=== PATIENT | female | born 1945 | race Caucasian/White ===

== ENCOUNTER → 2023-12-22 13:47 | Outpatient (REF) | payer MEDICARE, SELFPAY | LOC: RADI 13:47 | PROVIDERS: ATTENDING PHYSICIAN Internal Medicine | DX: E04.1 Nontoxic single thyroid nodule (principal) | CPT/HCPCS: 88173; 10005 ==

== ENCOUNTER 2024-01-25 19:58 | Inpatient (IN) | payer MEDICARE, OTHER, SELFPAY ==
[2024-01-25 17:29] VITALS: BP 190/105
[2024-01-25 18:14] VITALS: BMI 26.5
[2024-01-25 18:21] LABS: % Basophils 0.6 % (0-2); % Eosinophils 2.7 % (0-6); % Immature Granulocytes 0.4 % (0-0.5); % Lymphocytes 23.8 % (20.5-51.1); % Monocytes 6.3 % (1.7-9.3); % Neutrophils 66.2 % (42.2-75.2); Absolute Eosinophils 0.1 10^3/uL (0-0.7); Absolute Lymphocytes 1.3 10^3/uL (1.2-3.4); Absolute Monocytes 0.3 10^3/uL (0.1-0.6); Absolute Neutrophils 3.5 10^3/uL (1.4-6.5); Hematocrit 37.3 % (37.0-47.0); Hemoglobin 13.2 g/dL (12.0-16.0); Mean Corp Hgb Conc. 35.4 g/dL (33.0-37.0); Mean Corpuscular Hgb 28.3 pg (27.0-31.0); Mean Corpuscular Volume 79.9 fL (81.0-99.0); Mean Platelet Volume 9.6 fL (7.4-10.4); Nucleated Red Blood Cells % 0 %; Platelet Count 193 10^3/uL (130-400); Red Blood Cell Count 4.67 10^6/uL (4.20-5.40); Red Cell Dist. Width 14.7 % (11.5-14.5); White Blood Cell Count 5.3 10^3/uL (4.8-10.8)
--- NOTE | 2024-01-25 18:27 | EDRN ---
Nathan MARCOS currently at the pts bedside speaking with the pt
[2024-01-25 18:30] LABS: INR 0.99; PT 12.9 Sec (11.4-14.6)
[2024-01-25 18:31] LABS: APTT 28.3 Sec (23.4-35.0)
[2024-01-25 18:33] LABS: ALT (SGPT) 33 U/L (0-35); AST (SGOT) 36 U/L (14-36); Albumin 4.4 g/dl (3.5-5.0); Alkaline Phosphatase 80 U/L (38-126); Blood Urea Nitrogen 18 mg/dl (7-17); Carbon Dioxide 23 mmol/L (22-30); Chloride 107 mmol/L (98-107); Estimated Creatinine Clearance 51 ml/min; Glucose 89 mg/dl (70-99); Potassium 3.5 mmol/L (3.5-5.1); Sodium 139 mmol/L (135-145); Total Bilirubin 0.6 mg/dl (0.2-1.3); Total Protein 7.1 g/dl (6.3-8.2); eGFR > 60.00
[2024-01-25 18:44] LABS: Erythrocyte Sed Rate 23 mm/hour (0-20)
--- NOTE | 2024-01-25 18:44 | ED.GENMED ---
History of Present Illness
General
Chief Complaint: Eye Problems
Source: patient and records
Time Seen by Provider: 01/25/24 18:11
Travel History
Have you had any contact with someone who has COVID-19?: No
Do you have any symptoms of coronavirus? Fever > 100 degrees, chills, cough, shortness of breath, sore throat, loss of taste or smell, muscle aches, or headache?: No
History of Present Illness
History of Present Illness:
78-year-old female with past medical history of hypertension, hyperlipidemia, multiple GI complications, previous breast cancer presenting to the emergency department from her ophthalmology office with concern for central retinal artery occlusion.
Patient states that she awoke Wednesday morning describing a 'black like goo substance' over the central portion of her vision and she has not had return of her vision since then. She states that the vision has not gotten any worse however. She
does note that she has had almost daily headaches since December 22 for which she was taking Excedrin for but states due to her stomach issues this was causing her stomach to get upset so she stopped taking it. Patient states that the headaches would
be often times diffuse but would intermittently be isolated to different areas of her head but never seem to be the same. She denies any fevers or infectious symptoms, neck pain or stiffness, focal weakness or numbness, ocular pain, traumatic
injuries or any other concerns presently.
Past History
Past History
ED Past Medical History: Cancer, GERD, HTN and Hypercholesterolemia
ED Past Surgical History: Gynecological, Orthopedic, Tonsilectomy and Other
Social History
Tobacco: Former smoker
Alcohol: Occasional
Drug: None
Personal:
Living: with family
Employment: Retired
Family History
Family History: Other
Review of Systems
Review of Systems
All Other Systems: ROS reviewed and negative except as documented in HPI and ROS
Phy Exam
Physical Exam
Physical Exam:
GENERAL: Alert , in no apparent distress
Head: Normocephalic atraumatic, No tenderness over the temporal artery bilateral
EYE: pupils equal and reactive, 4 mm bilateral, EOMI, gross vision is intact to the left eye but patient is unable to visualize any of my fingers when placed directly in front of her eye. Peripheral vision seems and.
NECK: Supple
ENT: o/p clr, mmm.
CARDIAC: Regular rate and rhythm .
LUNGS: Clear breath sounds bilaterally, no acute respiratory distress, no wheezes/rales/rhonchi
ABDOMEN: Soft, without focal tenderness, no r/g, no cvat
NEUROLOGICAL: Alert and oriented, no focal neuro deficits
SKIN: Warm and dry, skin intact.
MUSCULOSKELETAL: well perfused.
PSYCH: Normal and appropriate interaction.
Scores
Heart Failure Risk
Heart Failure Risk Score: Not Applicable
Heart Score for Chest Pain Patients
STEMI patient?: Not applicable
Withdrawal Assessment of Alcohol
Withdrawal Assessment Completed?: Not applicable
Course
Orders/Labs/Results
Orders:
Orders
01/25/24 18:05
CT Head W/o Iv Contrast Urgent
Comment:
Reason For Exam: visual changes
01/25/24 18:10
C-Reactive Protein Urgent
Comment: ADD ON
Complete Blood Count/With Diff Urgent
Comprehensive Metabolic Panel Urgent
Erythrocyte Sed Rate Urgent
Comment: ADD ON
PT/INR [Prothrombin Time] Urgent
PTT Urgent
TSH Reflex To Free T4 Urgent
01/25/24 18:31
Add On- LAB Urgent
Tests Added?: ESR, CRP
01/25/24 18:33
EKG [Electrocardiogram (*1)] Urgent
Reason for Study: Vertigo / Dizzy
EKG- Treatment ONCE
01/25/24 19:13
Aspirin 325 mg PO NOW STA
Clopidogrel Bisulfate [Plavix] 300 mg PO NOW STA
01/25/24 19:41
Admit/Transfer Patient As Directed
Co-Sign Provider:
Level of Care: Inpatient admission
Assign to:: Telemetry
Physician / Group: Paris Junior
Diagnosis: retinal artery occlusion
Reason for Telemetry: CVA/TIA
Date to Stop Telemetry: 01/28/24
Time to Stop Telemetry: 11:00
Reason for Hospitalization: retinal artery occlusion; stroke
Expected length of stay greater than two midnights?: Yes
ELOS- Estimated Length of Stay in days: 2
I certify the patient meets the requirements for IP care: Yes
01/25/24 19:44
Code Status As Directed
Resuscitation Status: Do not resuscitate
Reached after discussion with pt or family/Healthcare POA: Yes
01/25/24 19:45
DNR Bracelet Application ONCE
01/25/24 20:44
Acetaminophen [Tylenol/Feverall] 650 mg RECTAL Q4HPRN PRN
Acetaminophen [Tylenol] 650 mg PO Q4HPRN PRN
01/25/24 20:44
Echo 2D MMode Color/Doppler Routine
Reason for Study: stroke/TIA
Case Management Consult ONCE
Case Management Consult: Discharge Planning
Comment: stroke/tia
DIETARY CONSULT Routine
Reason for Consult: stroke/TIA
NEUROLOGY CONSULT Routine
Consulting Provider: Angelita Sofia
Was physician already notified: Yes
Technical Architect Urgent
MA [place] Routine
Comment:
Reason For Exam: stroke/TIA
Recent pill cam endoscopy?: No
MA Neck With Contrast Routine
Comment:
Reason For Exam: stroke/TIA
Recent pill cam endoscopy?: No
MR Brain Without Contrast Routine
Comment:
Reason For Exam: stroke/TIA
Recent pill cam endoscopy?: No
Activity As Directed
Activity Level: As Tolerated
NIH Stroke Scale As Directed
Directions: Per protocol
Comment: every shift and with any change in condition or mental status
Neurological Checks As Directed
Frequency: q4h
Additional Instructions:: q4h x 24h upon admission to the floor, then qshift & with any change in condition
and mental status
Patient Education As Directed
Type: Stroke education packet
Comment: provide to patient and family
Pneumatic Compression Sleeves As Directed
Type: Knee high
Swallow Screening CVA/TIA ONLY As Directed
Comment: NPO until swallowing screening completed
If patient FAILS swallow screening:: NPO, Speech Therapy consult, Aspiration Precautions
If patient PASSES swallow screening, diet:: Cholesterol Lowering
Above diet order entered?: Yes- passed screening
Vital Signs As Directed
Frequency: Per unit guidelines
Ot Eval And Treat Routine
Pt Eval And Treat Routine
Activity Level: As Tolerated
Speech Therapy Eval & Treat Routine
DX Deep Vein Thrombosis Video Routine
01/25/24 22:00
Famotidine [Pepcid] 20 mg PO HS
Pantoprazole [Protonix] 40 mg PO HS
01/26/24 06:00
Basic Metabolic Panel IN AM
Cardiovascular Evaluation IN AM
Complete Blood Count/No Diff IN AM
Glycohemoglobin (HgbA1c) IN AM
Linaclotide [Linzess] 290 mcg PO DAILY @ 0600
01/26/24 08:00
Aspirin Chewable [Low Strength Aspirin] 81 mg PO DAILY
Bisacodyl [Dulcolax] 5 mg PO DAILY
Clopidogrel Bisulfate [Plavix] 75 mg PO DAILY
Duloxetine Delayed Release [Cymbalta Delayed Release] 20 mg PO DAILY
Sennosides [Senokot] 147.92 mg PO DAILY
01/26/24 12:00
Atorvastatin [Lipitor] 80 mg PO NOON
Ferrous Sulfate [Feosol] 325 mg PO NOON
Lisinopril [Zestril] 10 mg PO NOON
01/28/24 11:00
DC Protocol for Telemetry ONCE
Abnormal Lab Results
01/25/24
18:10
MCV 79.9 L fL
(81.0-99.0)
RDW 14.7 H %
(11.5-14.5)
ESR 23 H mm/hour
(0-20)
BUN 18 H mg/dl
(7-17)
01/25/24 18:10
01/25/24 18:10
Vital Signs
Initial and Last Documented VS:
Initial Vital Signs
Temp Pulse Resp BP Pulse Ox
98.5 F 85 18 190/105 98
01/25/24 17:29 01/25/24 17:29 01/25/24 17:29 01/25/24 17:29 01/25/24 17:29
Last Documented Vital Signs
Temp Pulse Resp BP Pulse Ox
97.1 F 78 18 152/98 99
01/25/24 18:52 01/25/24 20:00 01/25/24 20:00 01/25/24 20:00 01/25/24 20:00
MDM/Problems Addressed
Differential Diagnosis Includes:
Central retinal artery occlusion, giant cell arteritis, less concern for glaucoma given lack of pain associated with the visual disturbance 78-year-old female presenting emergency department for evaluation of right-sided ocular visual disturbance
since Wednesday. Evaluated by ophthalmology today read concern for central retinal artery occlusion and sent patient to the ER for further evaluation. Triage team initiated labs and CT of the head. Patient was noted to be fairly hypertensive on
arrival and we will trend this. Will consult with neurology. Anticipate admission
Chronic conditions affecting care: HTN
Acute Exacerbation and/or Progression of Chronic Illness: HTN
*Radiology
Radiology exam reviewed: radiology read reviewed
*Pulse Oximetry
Patient hypoxic: no
*EKG
Interpreted by ED Provider?: Yes
Comparison EKG: changes noted
Heart Rate: 73
Rate: normal
Rhythm: sinus arrhythmia
QRS Pattern: other (bifasicular block)
*Critical Care Note
Total Time (30-74mins, 75-104mins- exclusive of procedures): Not Applicable
Data Reviewed
Review of Other/Old Records Reveals: Records
Patient Management
Discussion with other providers: Hospitalist and Cashier Office
Escalation/DeEscalation of care consider admission/obs:
6:40 PM: Case discussed with neurology who would like patient to be admitted for further inpatient workup. Hospitalist team was notified and accepts for continued evaluation and treatment. Will treat with loading dose of aspirin and Plavix.
ED Attending Note
-
Portions of this chart may have been created with voice recognition software.� Occasional wrong word or��sound alike� substitutions may have occurred due to the inherent limitations of voice recognition software.
Discharge Plan
Departure
Patient Disposition: Admit
Date of Disposition: 01/25/24
Time of Disposition: 19:11
Presentation/result/management discussed w/ accepting MD/DO: Hospitalist
Discharge Problem:
Central retinal artery occlusion of right eye
Interventions
Interventions:
*Risk Screen - Suicide Last Done: 01/25/24 17:29
*General Assessment Last Done: 01/25/24 17:29
*Neglect/Abuse Screening Last Done: 01/25/24 17:29
ED- Fall Risk Assessment Last Done: 01/25/24 19:02
*ED COVID-19 Vaccine History Last Done: 01/25/24 18:14
*Nursing Disposition Last Done: 01/25/24 20:36
Discharge Date and Time
Discharge Date/Time: 01/25/24 20:37
[2024-01-25 18:48] LABS: C-Reactive Protein < 5.00 mg/L (0.0-10.00)
[2024-01-25 18:52] VITALS: BP 150/109
--- NOTE | 2024-01-25 18:53 | EDRN ---
the pts blood pressure is elevated, this RN notified Nathan MARCOS
--- NOTE | 2024-01-25 18:56 | EDRN ---
Nathan MARCOS currently at the pts bedside speaking with the pt about admission
[2024-01-25 19:03] LABS: TSH Reflex To Free T4 1.85 uIU/ml (0.47-4.68)
--- NOTE | 2024-01-25 19:11 | HPS.HSE ---
Family Physician
-
Family Physician: Kalen Rico Jr.
Chief Complaint
-
change in vision
History of Present Illness
Ms. Sue Rodriguez is a 78 yo woman with hx HTN, HLD, Tidwell's esophagus,chronic constipation sent to ER from ophthalmology office with loss of central vision and further work-up of suspected central retinal artery occlusion.
Patient has history of cataracts. She woke up Wednesday morning with painless loss of central vision of right eye. She describes it like black fog and can see around it. She figured it was her cataract and she was due for surgery. She had a
scheduled appointment with Dr. Rachel today who after work-up sent her to ER given concern Central retinal artery occlusion.
Patient states that she has had daily headaches over past month that have not been relieved with tylenol as her usual headaches are. Currently headache free. No fevers. No scalp tenderness. Her PCP thought it was sinus WOLFF but it didn't improve
with antibiotics.
No fevers/chills. No chest pain. She states she gets palpitations at night when plays games on her phone. + intermittent nausea, no vomiting. + LE edema on and off. No rash.
Medical History
Past Medical History
Past Medical History: Reports Other (HTN, HLD, Tidwell's esophagus)
Past Surgical History: Reports Gynocological, Orthopedic and Tonsilectomy
Social History
Tobacco: Former Smoker
Alcohol: Occasional
Family History
Family History: Not pertinent
Allergies / Home Medications
Allergies reflects when Allergies were last updated in [facility].
Home Medications with original date entered in [facility]
Allergy/Medication List:
Allergies
Allergy/AdvReac Type Severity Reaction Status Date / Time
Sulfa (Sulfonamide Allergy numbiness Verified 03/19/22 16:05
Antibiotics) in face
tetracycline [Tetracycline] Allergy face Verified 03/19/22 16:05
became numb
tetracycline HCl Allergy face Verified 03/19/22 16:05
[From Sumycin] became numb
Home Medications
hydrochlorothiazide 12.5 mg tablet 12.5 mg PO WEEKLY PRN Fluid retention/Swelling 08/02/20
linaclotide 290 mcg capsule (Linzess) 290 mcg PO DAILY 08/02/20
omeprazole magnesium 20 mg tablet,delayed release (Prilosec OTC) 40 mg PO HS Gastrointestinal issue 08/02/20
cholecalciferol (vitamin D3) 50 mcg (2,000 unit) tablet 2,000 unit PO NOON 10/09/20
famotidine 20 mg tablet 20 mg PO HS 10/09/20
ferrous sulfate 325 mg (65 mg iron) tablet (FeroSul) 325 mg PO NOON 10/09/20
sennosides 8.6 mg tablet (Senokot) 17.2 tab PO DAILY 10/09/20
Lactobacillus no.46-B. animalis-inulin 10 billion cell-100 mg capsule (Probiotic-10 (with inulin)) 1 cap PO BID@0800,1200 01/25/24
[facility] Laxative 1.5 tab PO BID@1200,1700 01/25/24
aloe vera 25 mg capsule 125 mg PO HS 01/25/24
atorvastatin 80 mg tablet 80 mg PO NOON 01/25/24
bisacodyl 5 mg tablet 5 mg PO DAILY 01/25/24
cyanocobalamin (vitamin B-12) 500 mcg tablet (Vitamin B-12) 500 mcg PO NOON 01/25/24
duloxetine 20 mg capsule,delayed release 20 mg PO DAILY 01/25/24
lisinopril 10 mg tablet 10 mg PO NOON 01/25/24
fpuqolsknjtx-gzbzkaoo-pmofuk tablet 1 tab PO Q48H 01/25/24
Review of Systems
-
History Source: Patient
A 12 point ROS was completed and negative except as noted: Yes
Physical Exam
Vital Signs
Vital Signs
Temp Pulse Resp BP Pulse Ox
97.1 F 80 16 150/109 96
01/25/24 18:52 01/25/24 18:52 01/25/24 18:52 01/25/24 18:52 01/25/24 18:52
Physical Exam
General: No Apparent Distress and Conversant
HEENT: Other (loss of central vision right eye)
Respiratory: Clear; No Wheezes
Cardiac: S1/S2 and Regular Rhythm
GI: Soft and Non Tender
Musculoskeletal: No Edema
Skin: Warm and Dry; No Rash
Neuro: AO x 3 and Other (no facial asymmetry, tongue protrusion mid-line, shoulder shrug WNL, normal speech, no pronator drift, 5/5 stregth upper and lower extremities, sensation grossly intact)
Psych: Calm
Laboratory Results
-
01/25/24 18:10
01/25/24 18:10
Laboratory Results
PT 12.9 Sec (11.4-14.6) 01/25/24 18:10
INR 0.99 01/25/24 18:10
APTT 28.3 Sec (23.4-35.0) 01/25/24 18:10
Total Bilirubin 0.6 mg/dl (0.2-1.3) 01/25/24 18:10
AST 36 U/L (14-36) 01/25/24 18:10
ALT 33 U/L (0-35) 01/25/24 18:10
Alkaline Phosphatase 80 U/L (38-126) 01/25/24 18:10
Data Reviewed
-
Diagnostic Radiology: Report Reviewed by me
Lab Data: Labs Reviewed by me
Impression/Plan
-
Ms. Sue Rodriguez is a 78 yo woman with hx HTN, HLD, Tidwell's esophagus sent to ER from ophthalmology office with loss of central vision and further work-up of suspected central retinal artery occlusion.
Triage VS: T 98.5, P 85, RR 18, BP 190/105, SpO2 98%
LABS: WBC 5.3, Hg 13.2, PLT 193, Na 139, K+ 3.5, Cr 0.8, Glucose 89, liver enzymes WNL, ESR 23, CRP < 5, TSH 1.[address]
IMPRESSION:
No acute intracranial abnormality noted.
MAR: asa/plavix
CENTRAL VISION LOSS
-concern for central retinal artery occlusion
-s/p full dose aspirin and plavix in ER
-admit to telemetry
-MRI/MRA tomorrow AM
-TTE
-formal neuro consult tomorrow
-neuro checks
-F/U lipid panel and A1c
-continue asa/plavix
-continue CHIEF SCIENCE OFFICER atorvastatin (took noon dose today)
-PT/OT/ST
HTN
-continue CHIEF SCIENCE OFFICER lisinopril
Tidwell's esophagus
-continue CHIEF SCIENCE OFFICER pepcid, prilosec (consider increasing to BID while on asa/plavix)
Chronic constipation
-CHIEF SCIENCE OFFICER Linzess, senna, and bisacodyl
DVT PPx SCD
DNR - patient wearing DNR bracelet of her own on admission; rediscussed on admit
[2024-01-25] MEDS: ASPIRIN 325 MG PO (19:20)
[2024-01-25] MEDS: PLAVIX 300 MG PO (19:20)
[2024-01-25 20:00] VITALS: BP 152/98
[2024-01-25 21:10] VITALS: BP 211/115
[2024-01-25 22:02] VITALS: BP 200/100
[2024-01-25] MEDS: PEPCID 20 MG PO (22:48)
[2024-01-25] MEDS: PROTONIX 40 MG PO (22:48)
[2024-01-25] MEDS: CATAPRES 0.100000000000000006 MG PO (22:49)
[2024-01-25 23:20] VITALS: BP 157/90
[2024-01-26] VITALS (7 sets, daily range): BP systolic 150–187; BP diastolic 66–88; PULSE 71; O2SAT 98
[2024-01-26] MEDS: TYLENOL 650 MG PO (05:45)
--- NOTE | 2024-01-26 05:51 | PTCARENOTE ---
Patient received from Ed via wheelchair and was assisted to bed by staff. She transferred using SPC. She was oriented to room and surroundings. Tele SA with PVC and BBC. Lungs CTA. Voiding in bathroom. NIH 1. She continues with central vision
loss in right eye but able to see peripherally. BP elevated 200/100. Catapres a ordered with repeat BP 157/90 HR 60's.
[2024-01-26 06:32] LABS: Hematocrit 32.7 % (37.0-47.0); Hemoglobin 11.6 g/dL (12.0-16.0); Mean Corp Hgb Conc. 35.5 g/dL (33.0-37.0); Mean Corpuscular Hgb 28.5 pg (27.0-31.0); Mean Corpuscular Volume 80.3 fL (81.0-99.0); Platelet Count 171 10^3/uL (130-400); Red Blood Cell Count 4.07 10^6/uL (4.20-5.40); Red Cell Dist. Width 14.6 % (11.5-14.5); White Blood Cell Count 4.2 10^3/uL (4.8-10.8)
[2024-01-26 06:53] LABS: Blood Urea Nitrogen 17 mg/dl (7-17); Calcium 9.3 mg/dl (8.4-10.2); Carbon Dioxide 26 mmol/L (22-30); Chloride 108 mmol/L (98-107); Estimated Creatinine Clearance 51 ml/min; Glucose 95 mg/dl (70-99); HDL Cholesterol 48 mg/dl; LDL Cholesterol, Calculated 107 mg/dl; Potassium 3.7 mmol/L (3.5-5.1); Sodium 139 mmol/L (135-145); Total Cholesterol 194 mg/dl (50-199); Triglyceride 195 mg/dl (10-149); Very Low Density Lipoprotein 39 mg/dl (0-30); eGFR > 60.00
--- NOTE | 2024-01-26 08:45 | CON.NEURO4 ---
Addendum entered and electronically signed by Marco Jose MD 01/26/24 11:10:
Studies reviewed.
I have personally examined the patient. I reviewed and agree with the ENVIRONMENTAL SERVICES TECH's Note.
My addenda:
Awake, alert, interactive. No acute distress.
Speech intact.
Follows 2-step requests w/o difficulty. No tremor.
Extra-ocular movements grossly intact.
Facial movements full and symmetric. Hearing intact to normal conversational volume.
Normal UE movements bilaterally.
Neck: full ROM.
Chest: no dyspnea
Heart: no JVD
Ext: (-) Clubbing, (-) Cyanosis, (-) Edema
IMPRESSIONS/RECOMMENDATIONS:
Abrupt onset of lost vision in the right eye
Differential diagnosis includes central retinal artery occlusion, migraine with aura (less likely due to the lack of variability in symptoms
Continued dual antiplatelet therapy with combined aspirin 81 mg and clopidogrel 75 mg, discontinuing clopidogrel after 21 days
goal of normotension as the patient symptomatology has been greater than 24 hours
Continue atorvastatin 80 mg daily, add Ezetimibe 10 mg daily due to elevated LDL
Check MRI of brain
Continue B12 replacement
Continue iron replacement
Provide prochlorperazine for headache control until normotension is achieved
Check MRA head and neck
There is no evidence at this time of temporal arteritis and therefore no indication at this time for the use of steroids
D/W patient
All questions answered.
Will continue to follow patient.
Original Note:
Documented by User: Jenna Chang NP 01/26/24 10:53
Consultation - Neurology 4
-
CONSULTING PHYSICIAN: Marco Jose MD
REFERRING PHYSICIAN: Hospitalists/Dr. Junior
DICTATED BY: KEHINDE Sebastian
DATE/TIME OF REQUEST: 01/25/24
DATE/TIME OF CONSULTATION: 01/26/24
Reason for Consultation: Right eye central retinal artery occlusion
History of Present Illness:
This is a 78-year-old female who has presented to the hospital on 01/25/24 with report of right eye vision loss. Patient reports having bilateral cataracts, severe in her right eye. Five days ago on 01/21/24 she went to bed at 2200 in her usual
state. She woke up several times throughout the night to use the bathroom and didn't notice any vision changes. When she woke up Wednesday morning (01/22/24), she reports that her right eye central vision had 'black goo' in it. This has been constant
since it started. She also notes occasionally seeing something similar to a moving shadow in her right eye lateral peripheral vision. She thought this was just a progression of her cataract. She went to see ophthalmology Dr. Yi on Wednesday
01/24/24, who told her he thought she had an eye stroke and referred her to the ER. CT head was obtained on arrival in the ER and was negative for any acute abnormalities. Her blood pressure has been elevated since arrival up to 211/115. She was not
a candidate for IAT/TNK due to being outside of the time window. She was loaded with DAPT in the ER. She denies any dizziness, speech/swallow difficulty, numbness, weakness, nausea, chest pain, palpitations, and shortness of breath.
Patient endorses a chronic daily headache associated with occasional photo/phonophobia since 12/23/23. On 12/22/23 she had a thyroid biopsy, and she attributed her new headache to a sinus infection. She was treated with PO Ceftin x10 days with no
improvement of her symptoms. Her blood pressure at that office visit was 166/78. Her headache did not resolve, and she was ordered a prednisone burst, but she never took this. Her headache is across her forehead and radiates across the top of her
head to her posterior head. It is typically worse in the morning. For 2-3 hours every morning it is a 9/10. Following that it becomes intermittent throughout the day and is more of a 4-6/10. Currently, it is a 6/10. She was taking Excedrin migraine
but started having GI upset, so she switched to taking Tylenol PRN. She reports having migraines for a short period after she quit smoking 29 years ago. She also notes that since 12/23/23 she has been dropping things more frequently, been more
forgetful, and her balance has worsened. She has chronic balance issues starting in her 20's. She reports having testing done at [facility] that revealed she has excess fluid in her middle ears. in 2019 she had a knee replacement and since
that time has needed to use a cane. She lives independently in an apartment at [facility]. She denies any history of TIA, stroke, or events like this in the past and she was not taking any blood-thinning medications.
Past Medical History: HTN, HLD, Tidwell's esophagus, breast cancer s/p mastectomy, b/l cataracts right>left, overactive bladder, IBS/chronic constipation, depression, 2 right lung nodules, osteopenia, recurrent UTI, measles, anemia, migraines
Surgical History: R TKR, T&A, b/l mastectomy, sebaceous cyst removal x2, tubal ligation
Family History: Father- stroke, Parkinson disease. Mother- Alzheimer's.
Social History: Former smoker. Occasional alcohol. Denies illicit drug use.
Allergies: Sulfa, tetracycline.
Home Medications: See below.
Review of Symptoms:
Patient denies any fever, chest pain, shortness of breath, GI or symptoms.
�Per the HPI.�All systems are reviewed negative except above.
Physical Exam:
The patient is afebrile, abdomen is nondistended, breathing is unlabored, skin is warm and dry, no edema. Livedo reticularis BLE.
NIH Stroke Scale:
I performed the NIH stroke scale on the patient on 01/26/24 at 0900. The patient scored 1 points on the NIH stroke scale assessment, which were assigned as follows: See below.
Neurologic Examination:
The patient is awake, alert and oriented x 3. She is able to follow commands and answer questions appropriately. There is no aphasia or dysarthria. On cranial nerve assessment, R pupil is 3, round, nonreactive. Left pupil is 2, round round and
reactive to light and accommodation. Visual aparicio are absent in the right eye central left vision, peripheral vision intact. Left eye visual aparicio intact. Extraocular movements are intact. Facial sensations are intact and bilaterally symmetrical,
there is no facial asymmetry. Hearing is intact bilaterally to normal conversation volume. Tongue palate and uvula are midline. Sternocleidomastoid strengths are full bilaterally. Motor strengths are 5/5 bilateral upper and lower extremities on
medical research Floyd scale. There is no drift or involuntary movement noted. Deep tendon reflexes are 2+ bilateral upper and lower extremities and Babinski is absent bilaterally. There was no extinction noted on double simultaneous stimulation.
Coordination is intact by finger to nose bilaterally.
Lab Results: See below.
Neuro Imaging:
1. CT Head 01/25/24: No acute intracranial abnormality noted.
Differentials for the patient's presentation include:
1. Right eye central retinal artery occlusion likely; brain stroke or vascular abnormality less likely but possible.
2. Hypertensive urgency likely producing intractable chronic daily headache. ESR is almost normal, making an inflammatory process less likely.
Patient has the following risk factors for their symptoms: HTN, HLD, age, former smoker
IV Tenecteplase/IAT candidacy: She was not a candidate for IAT/TNK due to being outside of the time window.
Recommendations:
-MRI brain noncontrast, MRA head/neck pending.
-Goal normotension.
-Continue DAPT with aspirin 81mg and Plavix 75mg daily for 21 days. After 21 days, discontinue Plavix and continue aspirin 81mg daily only, indefinitely.
-Tylenol PRN headache, can use prochlorperazine 10mg if headache does not resolve.
-LDL goal <70. LDL is 107. Continue home atorvastatin 80mg daily, add Zetia 10mg daily.
-Goal normoglycemia, hbA1c is pending.
-NIHSS and neurological checks per unit guidelines.
-Patient provided with a stroke education packet.
-PT/OT/ST evaluations.
-DVT prophylaxis.
-Will follow pending results.
Discussed patient care with: Dr. Jose, the patient
Vital Signs and Labs
-
Vital Signs and Labs:
Vital Signs
Temp Pulse Resp BP Pulse Ox
98.0 F 57 18 168/82 98
01/26/24 07:00 01/26/24 07:00 01/26/24 07:00 01/26/24 07:00 01/26/24 07:00
Lab Results
01/26/24 05:41
01/26/24 05:41
PT 12.9 Sec (11.4-14.6) 01/25/24 18:10
INR 0.99 01/25/24 18:10
APTT 28.3 Sec (23.4-35.0) 01/25/24 18:10
Sodium 139 mmol/L (135-145) 01/26/24 05:41
Potassium 3.7 mmol/L (3.5-5.1) 01/26/24 05:41
BUN 17 mg/dl (7-17) 01/26/24 05:41
Glucose 95 mg/dl (70-99) 01/26/24 05:41
Calcium 9.3 mg/dl (8.4-10.2) 01/26/24 05:41
LDL Cholesterol, Calc 107 mg/dl 01/26/24 05:41
Medications
-
Active Medications
Generic Name Dose Route Start Last Admin
Trade Name Freq PRN Reason Stop Dose Admin
Acetaminophen 650 mg 01/25/24 20:44
Acetaminophen 650 Mg Rectal Suppository RECTAL 02/22/24 20:43
Q4HPRN PRN
WOLFF, mild pain, or temp >100.4F
Acetaminophen 650 mg 01/25/24 20:44 01/26/24 05:45
Acetaminophen 325 Mg Tablet PO 02/22/24 20:43 650 mg
Q4HPRN PRN Administration
WOLFF, mild pain, or temp >100.4F
Aspirin 81 mg 01/26/24 08:00 01/26/24 09:38
Aspirin 81 Mg Chewable Tablet PO 02/23/24 07:59 81 mg
DAILY DE Administration
Atorvastatin Calcium 80 mg 01/26/24 12:00
Atorvastatin (Lipitor) 80 Mg Tablet PO 02/23/24 11:59
NOON DE
Bisacodyl 5 mg 01/26/24 08:00 01/26/24 09:40
Bisacodyl 5 Mg Enteric Coated Tablet PO 02/23/24 07:59 5 mg
DAILY DE Administration
Clopidogrel Bisulfate 75 mg 01/26/24 08:00 01/26/24 09:41
Clopidogrel 75 Mg Tablet PO 02/23/24 07:59 75 mg
DAILY DE Administration
Duloxetine HCl 20 mg 01/26/24 08:00 01/26/24 09:39
Duloxetine Delayed Release 20 Mg Capsule PO 02/23/24 07:59 20 mg
DAILY DE Administration
Famotidine 20 mg 01/25/24 22:00 01/25/24 22:48
Famotidine 20 Mg Tablet PO 02/22/24 21:59 20 mg
HS DE Administration
Ferrous Sulfate 325 mg 01/26/24 12:00
Ferrous Sulfate 325 Mg Tablet PO 02/23/24 11:59
NOON DE
Linaclotide 290 mcg 01/26/24 06:00 01/26/24 09:34
Linaclotide 290 Mcg Capsule PO 02/23/24 05:59 290 mcg
DAILY @ 0600 DE Administration
Lisinopril 10 mg 01/26/24 12:00
Lisinopril 10 Mg Tablet PO 02/23/24 11:59
NOON DE
Pantoprazole Sodium 40 mg 01/25/24 22:00 01/25/24 22:48
Pantoprazole 40 Mg Delayed Release Tablet PO 02/22/24 21:59 40 mg
HS DE Administration
Sennosides 8.6 mg 01/26/24 10:00 01/26/24 09:39
Sennosides (Senokot) 8.6 Mg Tablet PO 02/23/24 09:59 8.6 mg
BID DE Administration
Sodium Chloride 0 flush 01/25/24 21:00
Sodium Chloride 0.9% (Flush) Syringe IV 02/22/24 20:59
PER PROTOCOL DE
Home Medications
�Medication �Instructions �Recorded
hydrochlorothiazide 12.5 mg tablet 12.5 mg PO WEEKLY PRN Fluid 08/02/20
retention/Swelling
linaclotide 290 mcg capsule 290 mcg PO DAILY chronic 08/02/20
(Linzess) constipation
omeprazole magnesium 20 mg 40 mg PO HS Gastrointestinal issue 08/02/20
tablet,delayed release (Prilosec
OTC)
cholecalciferol (vitamin D3) 50 2,000 unit PO NOON Supplement 10/09/20
mcg (2,000 unit) tablet
famotidine 20 mg tablet 20 mg PO HS Gastrointestinal Issue 10/09/20
ferrous sulfate 325 mg (65 mg 325 mg PO NOON Supplement 10/09/20
iron) tablet (FeroSul)
sennosides 8.6 mg tablet (Senokot) 17.2 tab PO DAILY Constipation 10/09/20
Lactobacillus no.46-B. 1 cap PO BID@0800,1200 probiotic 01/25/24
animalis-inulin 10 billion
cell-100 mg capsule (Probiotic-10
(with inulin))
[facility] Laxative 1.5 tab PO BID@1200,1700 01/25/24
Constipation
aloe vera 25 mg capsule 125 mg PO HS Supplement 01/25/24
atorvastatin 80 mg tablet 80 mg PO NOON High Cholesterol 01/25/24
bisacodyl 5 mg tablet 5 mg PO DAILY Constipation 01/25/24
cyanocobalamin (vitamin B-12) 500 500 mcg PO NOON Supplement 01/25/24
mcg tablet (Vitamin B-12)
duloxetine 20 mg capsule,delayed 20 mg PO DAILY Depression 01/25/24
release
lisinopril 10 mg tablet 10 mg PO NOON Blood Pressure 01/25/24
ivczpnyixngh-ffppdskz-qrznsi tablet 1 tab PO Q48H Supplement 01/25/24
NIH Stroke Score
Subsequent NIH Scale
Date of Subsequent NIH Scale: 01/26/24
Time of Subsequent NIH Scale: 09:00
NIH Stroke Score
Level of Consciousness: 0 - Alert
LOC Questions: 0-Answers both correctly
LOC Commands: 0-Performs both correctly
Best Horizontal Gaze: 0-Normal
Visual Aparicio: 1=Partial hemianopia
Facial Palsy: 0=Normal, symmetrical
Motor - Right Arm: 0=No drift 10 seconds
Motor - Left Arm: 0=No drift 10 seconds
Motor - Right Le-No drift 5 seconds
Motor - Left Le-No drift 5 seconds
Limb Ataxia: 0-Absent
Sensation: 0-Normal
Best Language: 0-No aphasia
Dysarthria: 0-Normal
Extinction and Inattention: 0-No abnormality
Total Score:: 1

Documented by User: Marco Jose MD 01/26/24 11:04
NIH Stroke Score
NIH Stroke Score
Total Score:: 1
--- NOTE | 2024-01-26 09:33 | W.PN.HOSP.TC ---
Addendum entered and electronically signed by Sunny Stanford MD 01/26/24 15:45:
Case discussed with Dr. Jose, medically cleared for d/c on ASA and Plavix (21 days).
Total time spent on d/c = 34 min. This included today's physical exam, progress note, review of laboratory and diagnostic data, preparation of discharge documents and prescriptions, and discussions about the pt's hospital course and discharge plan
with the patient and other medical education manager involved in the patient's care.
Original Note:
Today's Communication/Plan
-
see bold
Assessment / Plan
Assessment / Plan
Gen: NAD, AAOx3.
Eyes: EOMI, PERRLA, no scleral icterus.
Neck: supple.
CV: RRR, +S1/S2, no m/r/g.
Resp: CTAB, no rales, wheezes, or rhonchi.
Abd: +BS, soft, NT, ND
Skin: No rashes.
Neuro: CN 2-12 intact, non-focal.
Psych: Normal mood and affect.
Central vision loss:
-concern for central retinal artery occlusion
-s/p full dose aspirin and plavix in ER
-check MRI/MRA
-check echo
-c/s neuro
-neuro checks
-continue asa/plavix/statin
-PT/OT/ST
HTN
-continue RECORD PRODUCER lisinopril
Tidwell's esophagus
-continue RECORD PRODUCER pepcid, prilosec (consider increasing to BID while on asa/plavix)
Chronic constipation
-RECORD PRODUCER Linzess, senna, and bisacodyl
DNR/SCD
Anticipated Discharge: Within 24 hours
Subjective/Interval History
-
Date of Service: January 26, 2024
No new complaints.
Objective Data
-
Labs:
Laboratory Results
01/26/24
05:41
WBC 4.2 L
Hgb 11.6 L
Hct 32.7 L
Plt Count 171
Sodium 139
Potassium 3.7
Chloride 108 H
Carbon Dioxide 26
BUN 17
Creatinine 0.8
Glucose 95
Calcium 9.3
Vital Signs:
Vital Signs
Temp Pulse Resp BP Pulse Ox
98.0 F 57 18 168/82 98
01/26/24 07:00 01/26/24 07:00 01/26/24 07:00 01/26/24 07:00 01/26/24 07:00
I&O
01/25/24 01/26/24 01/27/24
06:59 06:59 06:59
Intake Total 360 / 360
Balance 360 / 360
[2024-01-26] MEDS: LINZESS 290 MCG PO (09:34)
[2024-01-26] MEDS: LOW STRENGTH ASPIRIN 81 MG PO (09:38)
[2024-01-26] MEDS: SENOKOT 8.59999999999999964 MG PO (09:39)
[2024-01-26] MEDS: CYMBALTA DELAYED RELEASE 20 MG PO (09:39)
[2024-01-26] MEDS: DULCOLAX 5 MG PO (09:40)
[2024-01-26] MEDS: PLAVIX 75 MG PO (09:41)
[2024-01-26 11:05] LABS: Glycohemoglobin (HgbA1c) 5.4 % (4.0-5.6)
[2024-01-26] MEDS: ZESTRIL 10 MG PO (12:29)
[2024-01-26] MEDS: LIPITOR 80 MG PO (12:29)
[2024-01-26] MEDS: FEOSOL 325 MG PO (12:29)
--- NOTE | 2024-01-26 15:50 | W.DCSUMMARY ---
Discharge Summary
Discharge Data
Date of Admission: 01/25/24
Date of Discharge: 01/26/24
-
Pending Results: No
Hospital Course
Primary diagnoses:
Central vision loss of the right eye due to central retinal artery occlusion
Secondary diagnoses:
Essential hypertension
Tidwell's esophagus
Chronic constipation
Consultants:
Neurology
Imaging:
MRI brain: There is no acute intracranial process. Mild age-appropriate volume loss and leukoaraiosis. Degenerative disk and joint disease in the cervical spine incompletely imaged.
MRA brain: No acute intracranial abnormality noted.
MRA neck: There is less than 50% stenosis of the ICA bilaterally. Asymmetric vertebral arteries, the left is dominant. No focal abnormality. No aneurysm.
Hospital course: 78-year-old female presented yesterday evening with a chief complaint of change in vision as outlined in the H&P done on admission. There was concern for central retinal artery occlusion. Imaging above. MRI brain was notable for
no acute intracranial process. MRAs of the head and neck did not reveal any remarkable vascular abnormalities. Patient was seen in consultation by neurology. Plavix for 21 days and ongoing aspirin was recommended. The patient was discharged in
medically stable condition.
Discharge Plan
-
Patient Disposition: Home (Routine Discharge)
Discharge Diagnosis/Procedures: Central vision loss of the right eye due to central retinal artery occlusion
Condition: Good
Diet: Other diet
Additional Diets: Heart healthy
Activity: As tolerated
Driving Restrictions: Not until seen by your Dr
Bathing Restrictions: None
Referrals:
Kalen Rico Jr., DO [Family Provider] - in less than 1 week
Prescriptions:
New
clopidogrel 75 mg Tablet
75 mg PO DAILY Qty: 19 0RF
aspirin [Children's Aspirin] 81 mg Tablet,Chewable
81 mg PO DAILY Qty: 0 0RF
ezetimibe 10 mg Tablet
10 mg PO HS Qty: 30 0RF
Continued
omeprazole magnesium [Prilosec OTC] 20 MG tablet,delayed release (DR/EC)
40 mg PO HS
hydrochlorothiazide 12.5 MG tablet
12.5 mg PO WEEKLY PRN (Reason: Fluid retention/Swelling)
Linzess 290 MCG capsule
290 mcg PO DAILY
famotidine 20 MG tablet
20 mg PO HS
ferrous sulfate [FeroSul] 325 MG tablet
325 mg PO NOON
cholecalciferol (vitamin D3) 2,000 UNIT tablet
2,000 unit PO NOON
sennosides [Senokot] 8.6 MG tablet
17.2 tab PO DAILY
Patient Comments:
take with tamsulosin
atorvastatin 80 mg tablet
80 mg PO NOON
cyanocobalamin (vitamin B-12) [Vitamin B-12] 500 mcg Tablet
500 mcg PO NOON
tryweqpztutk-mtdrmmzy-eonkwc Tablet
1 tab PO Q48H
duloxetine 20 mg capsule,delayed release(DR/EC)
20 mg PO DAILY
Probiotic-10 (with inulin) 10 billion cell -100 mg Capsule
1 cap PO BID@0800,1200
[facility] Laxative
1.5 tab PO BID@1200,1700
lisinopril 10 MG tablet
10 mg PO NOON
aloe vera 25 MG capsule
125 mg PO HS
bisacodyl 5 mg Tablet
5 mg PO DAILY
Discharge Orders:
Discharge Patient (As Directed); Ordered 01/26/24
Ordered By: Sunny Stanford
Discharge Date and Time
Print Language: NEPALI
--- NOTE | 2024-01-26 16:39 | CM ---
Met with pt at bedside
Lives alone in independent living at [facility]
Independent, driving
DME - rollator, cane
SNF - [facility] in past
HH - denies
Has ride at d/c
PCP - Dr Jackelin Rico
Pharm - [facility]
PT/OT - no needs
Plan - anticipate home no needs
== END 2024-01-26 17:44 | disposition home or self-care (01) | DRG 125 ==
LOC: 3 WEST ACU 19:58
PROVIDERS: ADMITTING PHYSICIAN Student in an Organized Health Care Education/Training Program; ATTENDING PHYSICIAN Internal Medicine; EMERGENCY PHYSICIAN Emergency Medicine; FAMILY PHYSICIAN Family Medicine; OTHER PHYSICIAN Psychiatry & Neurology Neurology
DX: H34.11 Central retinal artery occlusion, right eye (principal); Z66 Do not resuscitate; Z87.891 Personal history of nicotine dependence; Z79.02 Long term (current) use of antithrombotics/antiplatelets; Z79.82 Long term (current) use of aspirin; I10 Essential (primary) hypertension; K22.70 Barrett's esophagus without dysplasia; K59.09 Other constipation; I16.0 Hypertensive urgency; H54.61 Unqualified visual loss, right eye, normal vision left eye
CPT/HCPCS: 70450; 70544; 70548; 70551; 80048; 80053; 80061; 83036; 84443; 85025; 85027; 85610; 85652; 85730; 86140; 93005; 93306; 97162; 97167; 99285; A9585

== ENCOUNTER → 2024-02-14 06:00 | Outpatient (REF) | payer MEDICARE, OTHER, SELFPAY ==
[2024-02-14 18:01] LABS: Urine Albumin Negative (Neg - Trace); Urine Bilirubin Negative (Negative); Urine Character Clear (Clear); Urine Color Yellow; Urine Glucose Negative (Negative); Urine Ketone Negative (Negative); Urine Leukocyte Negative (Negative); Urine Nitrite Negative (Negative); Urine Occult Blood Negative (Negative); Urine Urobilinogen Negative (Neg - 1+)
== END ==
LOC: OLABPV 06:00
PROVIDERS: ATTENDING PHYSICIAN Internal Medicine Geriatric Medicine
DX: N39.0 Urinary tract infection, site not specified (principal)
CPT/HCPCS: 81003

== ENCOUNTER → 2024-03-01 11:22 | Outpatient (REF) | payer MEDICARE, OTHER, SELFPAY ==
[2024-03-01 13:19] LABS: Blood Urea Nitrogen 15 mg/dl (7-17); Calcium 9.6 mg/dl (8.4-10.2); Carbon Dioxide 30 mmol/L (22-30); Chloride 105 mmol/L (98-107); Glucose 86 mg/dl (70-99); Potassium 4.1 mmol/L (3.5-5.1); Sodium 141 mmol/L (135-145); eGFR > 60.00
== END ==
LOC: OLABPV 11:22
PROVIDERS: ATTENDING PHYSICIAN Nurse Practitioner Primary Care
DX: I10 Essential (primary) hypertension (principal)
CPT/HCPCS: 36415; 80048

== ENCOUNTER → 2024-03-31 14:59 | Outpatient (REF) | payer MEDICARE, OTHER, SELFPAY ==
[2024-03-31 15:48] LABS: Urine Albumin Negative (Neg - Trace); Urine Bilirubin Negative (Negative); Urine Character Clear (Clear); Urine Color Yellow; Urine Glucose Negative (Negative); Urine Ketone Negative (Negative); Urine Leukocyte 2+ (Negative); Urine Nitrite Negative (Negative); Urine Occult Blood Trace (Negative); Urine Urobilinogen Negative (Neg - 1+)
[2024-03-31 16:01] LABS: Urine Red Blood Cell 0-2 /HPF (0-2); Urine White Cell 30-40 /HPF (0-5)
[2024-03-31 16:02] LABS: Urine Bacteria Moderate (Negative)
== END ==
LOC: OLABPV 14:59
PROVIDERS: ATTENDING PHYSICIAN Nurse Practitioner Primary Care
DX: R30.0 Dysuria (principal)
CPT/HCPCS: 81003; 81015; 87077; 87086; 87186

== ENCOUNTER → 2024-04-19 10:48 | Outpatient (REF) | payer MEDICARE, OTHER, SELFPAY ==
[2024-04-19 12:16] LABS: % Basophils 0.6 % (0-2); % Eosinophils 2.7 % (0-6); % Immature Granulocytes 0.2 % (0-0.5); % Lymphocytes 23.7 % (20.5-51.1); % Monocytes 6.5 % (1.7-9.3); % Neutrophils 66.3 % (42.2-75.2); Absolute Eosinophils 0.1 10^3/uL (0-0.7); Absolute Lymphocytes 1.1 10^3/uL (1.2-3.4); Absolute Monocytes 0.3 10^3/uL (0.1-0.6); Absolute Neutrophils 3.2 10^3/uL (1.4-6.5); Hematocrit 36.2 % (37.0-47.0); Hemoglobin 12.2 g/dL (12.0-16.0); Mean Corp Hgb Conc. 33.7 g/dL (33.0-37.0); Mean Corpuscular Hgb 29.2 pg (27.0-31.0); Mean Corpuscular Volume 86.6 fL (81.0-99.0); Mean Platelet Volume 10.1 fL (7.4-10.4); Nucleated Red Blood Cells % 0 %; Platelet Count 208 10^3/uL (130-400); Red Blood Cell Count 4.18 10^6/uL (4.20-5.40); Red Cell Dist. Width 15.3 % (11.5-14.5); White Blood Cell Count 4.8 10^3/uL (4.8-10.8)
[2024-04-19 12:45] LABS: ALT (SGPT) 45 U/L (0-35); AST (SGOT) 42 U/L (14-36); Albumin 4.4 g/dl (3.5-5.0); Alkaline Phosphatase 88 U/L (38-126); Blood Urea Nitrogen 15 mg/dl (7-17); Calcium 10.1 mg/dl (8.4-10.2); Carbon Dioxide 28 mmol/L (22-30); Chloride 105 mmol/L (98-107); Glucose 84 mg/dl (70-99); HDL Cholesterol 51 mg/dl; LDL Cholesterol, Calculated 104 mg/dl; Potassium 4.3 mmol/L (3.5-5.1); Sodium 141 mmol/L (135-145); Total Bilirubin 0.7 mg/dl (0.2-1.3); Total Cholesterol 203 mg/dl (50-199); Total Protein 6.6 g/dl (6.3-8.2); Triglyceride 241 mg/dl (10-149); Very Low Density Lipoprotein 48 mg/dl (0-30); eGFR > 60.00
[2024-04-19 12:59] LABS: Vitamin D, 25-OH*** 45.1 ng/mL (30-80)
[2024-04-19 13:13] LABS: TSH Reflex To Free T4 3.28 uIU/ml (0.47-4.68)
[2024-04-21 18:29] LABS: Aldosterone, Serum 4.4 ng/dL; Aldosterone/Renin Activ Ratio 0.6 ratio (<=25.0); Renin Activity Results 8.1 ng/mL/hr
== END ==
LOC: OLABPV 10:48
PROVIDERS: ATTENDING PHYSICIAN Nurse Practitioner Primary Care
DX: I10 Essential (primary) hypertension (principal); E78.2 Mixed hyperlipidemia; E03.8 Other specified hypothyroidism; E55.9 Vitamin D deficiency, unspecified
CPT/HCPCS: 36415; 80053; 80061; 82088; 82306; 84244; 84443; 85025

== ENCOUNTER → 2024-06-27 11:43 | Outpatient (REF) | payer MEDICARE, OTHER, SELFPAY ==
[2024-06-27 13:20] LABS: % Basophils 0.7 % (0-2); % Eosinophils 3.3 % (0-6); % Immature Granulocytes 0.2 % (0-0.5); % Lymphocytes 22.8 % (20.5-51.1); % Monocytes 7.2 % (1.7-9.3); % Neutrophils 65.8 % (42.2-75.2); Absolute Eosinophils 0.2 10^3/uL (0-0.7); Absolute Lymphocytes 1.1 10^3/uL (1.2-3.4); Absolute Monocytes 0.3 10^3/uL (0.1-0.6); Hematocrit 28.6 % (37.0-47.0); Hemoglobin 9.9 g/dL (12.0-16.0); Mean Corp Hgb Conc. 34.6 g/dL (33.0-37.0); Mean Corpuscular Hgb 28.3 pg (27.0-31.0); Mean Corpuscular Volume 81.7 fL (81.0-99.0); Mean Platelet Volume 10.1 fL (7.4-10.4); Nucleated Red Blood Cells % 0 %; Platelet Count 201 10^3/uL (130-400); Red Cell Dist. Width 15.5 % (11.5-14.5); White Blood Cell Count 4.6 10^3/uL (4.8-10.8)
[2024-06-27 13:23] LABS: Urine Albumin Negative (Neg - Trace); Urine Bilirubin Negative (Negative); Urine Glucose Negative (Negative); Urine Ketone Negative (Negative); Urine Leukocyte Negative (Negative); Urine Nitrite Negative (Negative); Urine Occult Blood Negative (Negative); Urine Urobilinogen Negative (Neg - 1+)
[2024-06-27 13:24] LABS: Urine Character Clear (Clear); Urine Color Yellow
[2024-06-27 13:28] LABS: ALT (SGPT) 44 U/L (0-35); AST (SGOT) 39 U/L (14-36); Albumin 4.1 g/dl (3.5-5.0); Alkaline Phosphatase 86 U/L (38-126); Blood Urea Nitrogen 13 mg/dl (7-17); Calcium 9.7 mg/dl (8.4-10.2); Carbon Dioxide 27 mmol/L (22-30); Chloride 105 mmol/L (98-107); Glucose 87 mg/dl (70-99); HDL Cholesterol 55 mg/dl; Iron 47 ug/dl (37-170); LDL Cholesterol, Calculated 57 mg/dl; Potassium 4.4 mmol/L (3.5-5.1); Sodium 142 mmol/L (135-145); Total Bilirubin 0.6 mg/dl (0.2-1.3); Total Cholesterol 141 mg/dl (50-199); Total Protein 6.3 g/dl (6.3-8.2); Triglyceride 148 mg/dl (10-149); Very Low Density Lipoprotein 29 mg/dl (0-30); eGFR > 60.00
[2024-06-27 13:38] LABS: Percent Saturation 13 % (20-50); Total Iron Binding Capacity 351 ug/dl (265-497)
== END ==
LOC: OLABPV 11:43
PROVIDERS: ATTENDING PHYSICIAN Internal Medicine Geriatric Medicine
DX: I10 Essential (primary) hypertension (principal); E78.2 Mixed hyperlipidemia; M85.89 Other specified disorders of bone density and structure, multiple sites; F33.42 Major depressive disorder, recurrent, in full remission; K58.1 Irritable bowel syndrome with constipation; K21.9 Gastro-esophageal reflux disease without esophagitis; R26.89 Other abnormalities of gait and mobility; D64.9 Anemia, unspecified; Z13.31 Encounter for screening for depression; E55.9 Vitamin D deficiency, unspecified; Z23 Encounter for immunization
CPT/HCPCS: 36415; 80053; 80061; 81003; 83540; 83550; 85025

== ENCOUNTER → 2024-08-23 07:55 | Outpatient (REF) | payer MEDICARE, OTHER, SELFPAY ==
[2024-08-23 16:53] LABS: Urine Albumin 1+ (Neg - Trace); Urine Bilirubin Negative (Negative); Urine Character Clear (Clear); Urine Color Yellow; Urine Glucose Negative (Negative); Urine Ketone Negative (Negative); Urine Leukocyte 2+ (Negative); Urine Nitrite Positive (Negative); Urine Occult Blood 3+ (Negative); Urine Urobilinogen Negative (Neg - 1+)
[2024-08-23 17:07] LABS: Urine Bacteria Many (Negative); Urine Squamous Cell 0-2 /LPF (Few); Urine White Cell 90-100 /HPF (0-5)
== END ==
LOC: OLABPV 07:55
PROVIDERS: ATTENDING PHYSICIAN Internal Medicine Geriatric Medicine
DX: N39.0 Urinary tract infection, site not specified (principal); R35.0 Frequency of micturition
CPT/HCPCS: 81003; 81015; 87077; 87086

== ENCOUNTER → 2024-08-30 11:18 | Outpatient (REF) | payer MEDICARE, OTHER, SELFPAY ==
[2024-08-30 12:28] LABS: % Basophils 0.6 % (0-2); % Immature Granulocytes 0.2 % (0-0.5); % Lymphocytes 24.5 % (20.5-51.1); % Monocytes 6.6 % (1.7-9.3); % Neutrophils 65.1 % (42.2-75.2); Absolute Eosinophils 0.2 10^3/uL (0-0.7); Absolute Lymphocytes 1.3 10^3/uL (1.2-3.4); Absolute Monocytes 0.4 10^3/uL (0.1-0.6); Absolute Neutrophils 3.4 10^3/uL (1.4-6.5); Hematocrit 38.2 % (37.0-47.0); Hemoglobin 12.9 g/dL (12.0-16.0); Mean Corp Hgb Conc. 33.8 g/dL (33.0-37.0); Mean Corpuscular Hgb 29.1 pg (27.0-31.0); Mean Corpuscular Volume 86.2 fL (81.0-99.0); Mean Platelet Volume 10.4 fL (7.4-10.4); Nucleated Red Blood Cells % 0 %; Platelet Count 196 10^3/uL (130-400); Red Blood Cell Count 4.43 10^6/uL (4.20-5.40); Red Cell Dist. Width 14.8 % (11.5-14.5); White Blood Cell Count 5.3 10^3/uL (4.8-10.8)
[2024-08-30 12:42] LABS: ALT (SGPT) 53 U/L (0-35); AST (SGOT) 43 U/L (14-36); Albumin 4.3 g/dl (3.5-5.0); Alkaline Phosphatase 83 U/L (38-126); Blood Urea Nitrogen 17 mg/dl (7-17); Calcium 9.7 mg/dl (8.4-10.2); Carbon Dioxide 29 mmol/L (22-30); Chloride 104 mmol/L (98-107); Glucose 95 mg/dl (70-99); Iron 66 ug/dl (37-170); Potassium 4.1 mmol/L (3.5-5.1); Sodium 142 mmol/L (135-145); Total Bilirubin 0.6 mg/dl (0.2-1.3); Total Protein 6.8 g/dl (6.3-8.2); eGFR > 60.00
[2024-08-30 12:55] LABS: Percent Saturation 17 % (20-50); Total Iron Binding Capacity 372 ug/dl (265-497)
== END ==
LOC: OLABPV 11:18
PROVIDERS: ATTENDING PHYSICIAN Internal Medicine Geriatric Medicine
DX: E78.2 Mixed hyperlipidemia (principal); I10 Essential (primary) hypertension; M85.89 Other specified disorders of bone density and structure, multiple sites; F33.42 Major depressive disorder, recurrent, in full remission; K58.1 Irritable bowel syndrome with constipation; K21.9 Gastro-esophageal reflux disease without esophagitis; R26.89 Other abnormalities of gait and mobility; D64.9 Anemia, unspecified; E55.9 Vitamin D deficiency, unspecified; Z13.89 Encounter for screening for other disorder; Z85.3 Personal history of malignant neoplasm of breast; M81.0 Age-related osteoporosis without current pathological fracture
CPT/HCPCS: 36415; 80053; 82306; 83540; 83550; 85025

== ENCOUNTER → 2024-10-03 09:04 | Outpatient (REF) | payer MEDICARE, OTHER, SELFPAY ==
[2024-10-03 11:48] LABS: ALT (SGPT) 46 U/L (0-35); AST (SGOT) 35 U/L (14-36); Albumin 4.3 g/dl (3.5-5.0); Alkaline Phosphatase 87 U/L (38-126); Blood Urea Nitrogen 17 mg/dl (7-17); Calcium 9.8 mg/dl (8.4-10.2); Carbon Dioxide 31 mmol/L (22-30); Chloride 101 mmol/L (98-107); Glucose 91 mg/dl (70-99); Potassium 4.6 mmol/L (3.5-5.1); Sodium 139 mmol/L (135-145); Total Bilirubin 0.6 mg/dl (0.2-1.3); Total Protein 6.8 g/dl (6.3-8.2); eGFR > 60.00
== END ==
LOC: OLABPV 09:04
PROVIDERS: ATTENDING PHYSICIAN Internal Medicine Geriatric Medicine
DX: I10 Essential (primary) hypertension (principal); Z85.3 Personal history of malignant neoplasm of breast; E78.2 Mixed hyperlipidemia; M85.89 Other specified disorders of bone density and structure, multiple sites; F33.42 Major depressive disorder, recurrent, in full remission; K58.1 Irritable bowel syndrome with constipation; K21.9 Gastro-esophageal reflux disease without esophagitis; R26.89 Other abnormalities of gait and mobility; D64.9 Anemia, unspecified; E55.9 Vitamin D deficiency, unspecified; Z13.89 Encounter for screening for other disorder; R74.01 Elevation of levels of liver transaminase levels
CPT/HCPCS: 36415; 80053

== ENCOUNTER → 2025-03-20 04:30 | Outpatient (REF) | payer MEDICARE, OTHER, SELFPAY ==
[2025-03-20 12:05] LABS: Urine Albumin Negative (Neg - Trace); Urine Bilirubin Negative (Negative); Urine Character Clear (Clear); Urine Color Yellow; Urine Glucose Negative (Negative); Urine Ketone Negative (Negative); Urine Leukocyte 1+ (Negative); Urine Nitrite Negative (Negative); Urine Occult Blood Negative (Negative); Urine Urobilinogen Negative (Neg - 1+)
[2025-03-20 12:39] LABS: Urine Bacteria Few (Negative); Urine Red Blood Cell 0-2 /HPF (0-2)
== END ==
LOC: OLABPV 04:30
PROVIDERS: ATTENDING PHYSICIAN Internal Medicine Geriatric Medicine
DX: R30.0 Dysuria (principal); R35.0 Frequency of micturition
CPT/HCPCS: 81003; 81015; 87086

== ENCOUNTER → 2025-03-22 11:15 | Outpatient (REF) | payer MEDICARE, OTHER, SELFPAY ==
[2025-03-22 15:07] LABS: Urine Albumin Negative (Neg - Trace); Urine Bilirubin Negative (Negative); Urine Character Clear (Clear); Urine Color Yellow; Urine Glucose Negative (Negative); Urine Ketone Negative (Negative); Urine Leukocyte 2+ (Negative); Urine Nitrite Negative (Negative); Urine Occult Blood Negative (Negative); Urine Urobilinogen Negative (Neg - 1+)
[2025-03-22 15:17] LABS: Urine Mucus Few; Urine Squamous Cell 0-2 /LPF (Few)
[2025-03-22 15:18] LABS: Urine Bacteria Many (Negative); Urine Red Blood Cell 0-2 /HPF (0-2); Urine White Cell 16-20 /HPF (0-5)
== END ==
LOC: OLABPV 11:15
PROVIDERS: ATTENDING PHYSICIAN Internal Medicine Geriatric Medicine
DX: R30.0 Dysuria (principal); R35.0 Frequency of micturition
CPT/HCPCS: 81003; 81015; 87086

== ENCOUNTER → 2025-04-16 16:03 | Outpatient (REF) | payer MEDICARE, OTHER, SELFPAY | LOC: RAD 16:03 | PROVIDERS: ATTENDING PHYSICIAN Nurse Practitioner Family; FAMILY PHYSICIAN Internal Medicine Geriatric Medicine | DX: K59.04 Chronic idiopathic constipation (principal) | CPT/HCPCS: 74018 ==

== ENCOUNTER → 2025-04-20 09:52 | Outpatient (REF) | payer MEDICARE, OTHER, SELFPAY ==
[2025-04-20 10:14] LABS: Hematocrit 39.5 % (37.0-47.0); Hemoglobin 12.9 g/dL (12.0-16.0); Mean Corp Hgb Conc. 32.7 g/dL (33.0-37.0); Mean Corpuscular Volume 85.1 fL (81.0-99.0); Nucleated Red Blood Cells % 0 %; Platelet Count 220 10^3/uL (130-400); Red Cell Dist. Width 13.8 % (11.5-14.5)
[2025-04-20 10:22] LABS: ALT (SGPT) 24 U/L (0-35); AST (SGOT) 30 U/L (14-36); Albumin 4.3 g/dl (3.5-5.0); Alkaline Phosphatase 70 U/L (38-126); Blood Urea Nitrogen 16 mg/dl (7-17); Calcium 10.0 mg/dl (8.4-10.2); Carbon Dioxide 30 mmol/L (22-30); Chloride 106 mmol/L (98-107); Glucose 87 mg/dl (70-99); Potassium 5.3 mmol/L (3.5-5.1); Sodium 140 mmol/L (135-145); Total Protein 6.9 g/dl (6.3-8.2); eGFR > 60.00
== END ==
LOC: OLABPV 09:52
PROVIDERS: ATTENDING PHYSICIAN Nurse Practitioner Primary Care
DX: K58.1 Irritable bowel syndrome with constipation (principal); K22.719 Barrett's esophagus with dysplasia, unspecified
CPT/HCPCS: 36415; 80053; 84443; 85025

== ENCOUNTER → 2025-05-04 11:18 | Outpatient (REF) | payer MEDICARE, OTHER, SELFPAY ==
[2025-05-04 16:08] LABS: Blood Urea Nitrogen 17 mg/dl (7-17); Calcium 10.3 mg/dl (8.4-10.2); Carbon Dioxide 28 mmol/L (22-30); Chloride 106 mmol/L (98-107); Glucose 90 mg/dl (70-99); Potassium 4.8 mmol/L (3.5-5.1); Sodium 140 mmol/L (135-145); eGFR > 60.00
== END ==
LOC: OLABLV 11:18
PROVIDERS: ATTENDING PHYSICIAN Nurse Practitioner Primary Care
DX: E87.5 Hyperkalemia (principal)
CPT/HCPCS: 36415; 80048